=== PATIENT | female | born 1945 ===

== ENCOUNTER 2018-08-08 09:29 | Inpatient (IN) | payer OTHER ==
[~2018-08-08] VITALS: Ht 152.4 cm; Wt 63.5 kg
== END 2018-08-21 15:23 | disposition expired | DRG 329 ==
LOC: SURH 08-13 09:19 → O/R 08-13 09:20 → SURH 08-13 09:20
PROVIDERS: ADMIT Colon & Rectal Surgery
PROC: 07TC4ZZ Resection of Pelvis Lymphatic, Percutaneous Endoscopic Approach (ICD-10-PCS; 2018-08-13)
PROC: 0DTN4ZZ Resection of Sigmoid Colon, Percutaneous Endoscopic Approach (ICD-10-PCS; principal; 2018-08-13 21:15)
PROC: B020ZZZ Computerized Tomography (CT Scan) of Brain (ICD-10-PCS; 2018-08-17)
PROC: BT43ZZZ Ultrasonography of Bilateral Kidneys (ICD-10-PCS; 2018-08-19)
PROC: 0BH17EZ Insertion of Endotracheal Airway into Trachea, Via Natural or Artificial Opening (ICD-10-PCS; 2018-08-21)
PROC: 5A1935Z Respiratory Ventilation, Less than 24 Consecutive Hours (ICD-10-PCS; 2018-08-21)
PROC: 4A12X4Z Monitoring of Cardiac Electrical Activity, External Approach (ICD-10-PCS; 2018-08-21)
DX: C19 Malignant neoplasm of rectosigmoid junction (principal); J95.821 Acute postprocedural respiratory failure; I21.29 ST elevation (STEMI) myocardial infarction involving other sites; K91.72 Accidental puncture and laceration of a digestive system organ or structure during other procedure; N17.8 Other acute kidney failure; E87.1 Hypo-osmolality and hyponatremia; I97.121 Postprocedural cardiac arrest following other surgery; I97.191 Other postprocedural cardiac functional disturbances following other surgery; E87.2 Acidosis; R50.82 Postprocedural fever; D64.89 Other specified anemias; K66.0 Peritoneal adhesions (postprocedural) (postinfection); I10 Essential (primary) hypertension

== ENCOUNTER 2018-08-12 10:45 | Day surgery (SDC) | payer OTHER | END 2018-08-12 14:50 | disposition home or self-care (01) | LOC: AMB-ENDOS 10:45 | DX: K64.1 Second degree hemorrhoids (principal) ==